=== PATIENT | male | born 1965 | race Caucasian/White ===

== ENCOUNTER 2017-06-05 18:45 | Emergency (ER) | payer OTHER ==
--- NOTE | 2017-06-05 18:58 | PDOC ---
Rapid Medical Evaluation Chief Complaint: Pain Time Seen by Provider: 06/05/17 18:53 Medical Evaluation: Allergies Allergy/AdvReac Type Severity Reaction Status Date / Time No Known Allergies Allergy Unverified 07/30/13 11:07 06/05/17 18:54 Pt presents with complaint of : rt inguinal pain, sent here for preop by Dr. Marti , wants to r/o incarceration prior to sx On brief exam: no skin discoloration I have ordered the following: needs preop Pt will go to the Emergency Dept for further workup Discharge Disposition - Diagnosis Inguinal hernia - Referrals - Patient Instructions - Post Discharge Activity
[2017-06-05 20:56] LABS: BASOPHIL 1.2 % (0-2.0); EOSINOPHIL 8.2 % (0-4.5); MCH 32.1 pg (25.7-33.7); MCHC 33.8 g/dl (32.0-35.9); MEAN PLT VOLUME 8.4 fl (7.5-11.1); NEUTROPHILS 49.8 % (42.8-82.8); PLATELET COUNT 233 K/MM3 (134-434); RDW 13.6 % (11.9-15.9); WHITE BLOOD COUNT 9.9 K/mm3 (4.0-10.0)
[2017-06-05 21:02] LABS: URINE APPEARANCE SLCLOUDY; URINE BILIRUBIN NEGATIVE (NEGATIVE); URINE BLOOD 2+ (NEGATIVE); URINE COLOR YELLOW; URINE GLUCOSE (UA) NEGATIVE (NEGATIVE); URINE KETONE NEGATIVE (NEGATIVE); URINE NITRITE NEGATIVE (NEGATIVE); URINE UROBILINOGEN NEGATIVE mg/dL (0.2-1.0)
--- NOTE | 2017-06-05 21:02 | PDOC ---
History of Present Illness <Mariaelena Groves - Last Filed: 06/06/17 00:27> - History of Present Illness Initial Comments: 06/05/17 20:59 "The patient is a 51 year old male, with a significant past medical history of diabetes, who presents to the emergency department complaining of pain to the right inguinal area for approximately 1 week. The patient reports he was driving when he began to experience pain to the right inguinal area. He reports visiting his PCP, Dr. Reeves, who diagnosed the patient with a hernia. The patient reports his pain is nonradiating and rates it an 8/10. He denies any associated nausea, vomiting, diarrhea, or constipation. He denies any scrotal pain, dysuria, hematuria, frequency, or urgency. He denies any fever, chills, dizziness, or lightheadedness. He denies any trauma or heavy lifting. He denies any recent travel or sick contacts. No past surgeries. Allergies: NKDA Past Surgical History: None reported Social History: Non smoker. No ETOH or recreational drug use PCP: Dr. Reeves " <Orlando Mcknight - Last Filed: 06/06/17 01:51> - General Chief Complaint: Pain Stated Complaint: PCP SENT Time Seen by Provider: 06/05/17 18:53 Past History <Mariaelena Groves - Last Filed: 06/06/17 00:27> - Past Medical History COPD: No Diabetes: Yes Liver Disease: (FATTY LIVER) - Surgical History Appendectomy: Yes - Suicide/Smoking/Psychosocial Hx Smoking History: Former smoker Have you smoked in the past 12 months: Yes Number of Cigarettes Smoked Daily: 3 If you are a former smoker, when did you quit?: 8 MONTHS Information on smoking cessation initiated: Yes 'Breaking Loose' booklet given: 06/05/17 Hx Alcohol Use: No Drug/Substance Use Hx: No Substance Use Type: None <Orlando Mcknight - Last Filed: 06/06/17 01:51> - Past Medical History Allergies/Adverse Reactions: Allergies Allergy/AdvReac Type Severity Reaction Status Date / Time No Known Allergies Allergy Unverified 06/05/17 18:57 Home Medications: Ambulatory Orders Metformin HCl 500 mg PO DAILY 06/05/17 Review of Systems - Review of Systems Comments:: 06/05/17 21:00 "GENERAL/CONSTITUTIONAL: No fever or chills. No weakness. HEAD, EYES, EARS, NOSE AND THROAT: No change in vision. No ear pain or discharge. No sore throat. CARDIOVASCULAR: No chest pain or shortness of breath. RESPIRATORY: No cough, wheezing, or hemoptysis. GASTROINTESTINAL: No nausea, vomiting, diarrhea or constipation. GENITOURINARY: Yes right inguinal pain.No dysuria, frequency, or change in urination. MUSCULOSKELETAL: No joint or muscle swelling or pain. No neck or back pain. SKIN: No rash NEUROLOGIC: No headache, vertigo, loss of consciousness, or change in strength/ sensation. ENDOCRINE: No increased thirst. No abnormal weight change. HEMATOLOGIC/LYMPHATIC: No anemia, easy bleeding, or history of blood clots. ALLERGIC/IMMUNOLOGIC: No hives or skin allergy." <Orlando Mcknight - Last Filed: 06/06/17 01:51> *Physical Exam - Vital Signs Last Vital Signs Temp Pulse Resp BP Pulse Ox 98.8 F 86 16 117/73 100 06/05/17 23:32 06/05/17 23:32 06/05/17 23:32 06/05/17 23:32 06/05/17 23:32 <Mariaelena Groves - Last Filed: 06/06/17 00:27> - Vital Signs Last Vital Signs Temp Pulse Resp BP Pulse Ox 107 H 18 140/97 98 06/05/17 18:54 06/05/17 18:54 06/05/17 18:54 06/05/17 18:54 - Physical Exam Comments: 06/05/17 21:01 "GENERAL: Awake, alert, and fully oriented, in no acute distress HEAD: No signs of trauma EYES: PERRLA, EOMI, sclera anicteric, conjunctiva clear ENT: Auricles normal inspection, hearing grossly normal, nares patent, oropharynx clear without exudates. Moist mucosa NECK: Nontender, no stepoffs, Normal ROM, supple, no lymphadenopathy, JVD, or masses LUNGS: Breath sounds equal, clear to auscultation bilaterally. No wheezes, and no crackles HEART: Regular rate and rhythm, normal S1 and S2, no murmurs, rubs or gallops ABDOMEN: Soft, nontender, normoactive bowel sounds. No guarding, no rebound. No masses : Mild tenderness in R groin with no appreciable mass, no scrotal tenderness or masses, no inguinal masses EXTREMITIES: Normal range of motion, no edema. No clubbing or cyanosis. No cords, erythema, or tenderness NEUROLOGICAL: Cranial nerves II through XII intact. 5/5 strength and sensation in all extremities, Normal speech, normal gait SKIN: Warm, Dry, normal turgor, no rashes or lesions noted. " <Orlando Mcknight - Last Filed: 06/06/17 01:51> ED Treatment Course - LABORATORY CBC & Chemistry Diagram: 06/05/17 20:41 06/05/17 20:41 - ADDITIONAL ORDERS Additional order review: Laboratory Results 06/05/17 06/05/17 06/05/17 20:41 20:41 20:41 PT with INR 9.90 L INR 0.88 PTT (Actin FS) 30.7 Sodium 141 Potassium 4.1 Chloride 108 H Carbon Dioxide 28 Anion Gap 5 L BUN 13 Creatinine 0.9 Creat Clearance w eGFR > 60 Random Glucose 112 H Lactic Acid 1.6 Calcium 8.3 L Total Bilirubin 0.2 AST 21 ALT 55 Alkaline Phosphatase 62 Total Protein 6.7 Albumin 3.7 Urine Color Urine Appearance Urine pH Ur Specific [place] Urine Protein Urine Glucose (UA) Urine Ketones Urine Blood Urine Nitrite Urine Bilirubin Urine Urobilinogen Urine WBC (Auto) Urine RBC (Auto) Urine Mucus Blood Type Antibody Screen 06/05/17 06/05/17 20:25 20:24 PT with INR INR PTT (Actin FS) Sodium Potassium Chloride Carbon Dioxide Anion Gap BUN Creatinine Creat Clearance w eGFR Random Glucose Lactic Acid Calcium Total Bilirubin AST ALT Alkaline Phosphatase Total Protein Albumin Urine Color Yellow Urine Appearance Slcloudy Urine pH 5.0 Ur Specific [place] 1.029 Urine Protein 1+ H Urine Glucose (UA) Negative Urine Ketones Negative Urine Blood 2+ H Urine Nitrite Negative Urine Bilirubin Negative Urine Urobilinogen Negative Urine WBC (Auto) 6 Urine RBC (Auto) 46 Urine Mucus Many Blood Type B POSITIVE Antibody Screen Negative 06/05/17 20:41 RBC 4.76 MCV 95.0 MCHC 33.8 RDW 13.6 MPV 8.4 Neutrophils % 49.8 Lymphocytes % 29.1 Monocytes % 11.7 H Eosinophils % 8.2 H Basophils % 1.2 - RADIOLOGY Radiograph Interpretation: 06/06/17 00:21 EXAM: CXR INTERPRETED BY: Dr. Lynne REVIEWED BY: Dr. Mcknight IMPRESSION: No focal opacity to suggest pneumonia. Please correlate clinically. EXAM: CT Abdomen and Pelvis INTERPRETED BY: Dr. Lynne REVIEWED BY: Dr. Mcknight IMPRESSION: The appendix is not visualized, however, no secondary signs of acute appendicitis in the right lower quadrant. No evidence of intestinal obstruction or acute diverticulitis. No definite bowel wall thickening. Hepatic steatosis. <Mariaelena Groves - Last Filed: 06/06/17 00:27> - LABORATORY CBC & Chemistry Diagram: 06/05/17 20:41 06/05/17 20:41 - RADIOLOGY Radiology Studies Ordered: Category Date Time Status ABDOMEN & PELVIS CT WITH CONTR [CT] Stat CT Scan 06/05/17 19:43 Ordered CHEST X-RAY PORTABLE* [RAD] Stat Radiology 06/05/17 19:42 Completed <Orlando Mcknight - Last Filed: 06/06/17 01:51> Medical Decision Making - Medical Decision Making 06/06/17 00:27 First call placed to Dr. Marti at 00:28. Awaiting call back. <Mariaelena Groves - Last Filed: 06/06/17 00:27> - Medical Decision Making 06/05/17 21:01 51 M with R groin pain x 1 week. Possible hernia. Pt with unremarkable abdominal exam and scrotal exam. No s/s of intestinal obstruction at this time. - Labs - CT abd/pelvis - Dr. Marti aware of patient 06/06/17 01:46 CT without evidence of hernia. UA notable for +RBCs, suggesting possible kidney stone. No stone visualized on CT. Pt may have recently passed the stone given pain localized near his groin. Spoke with Dr. Marti, who agrees with plan to DC and f/u in clinic. Pt reassessed - pain is minimal at this time. Pt tolerating PO. Well appearing with normal vitals. Clinically stable for DC. <Orlando Mcknight - Last Filed: 06/06/17 01:51> *DC/Admit/Observation/Transfer - Attestations Scribe Attestion: 06/06/17 00:22 Documentation prepared by Mariaelena Groves, acting as senior medical billing specialist for Orlando Mcknight MD. <Mariaelena Groves - Last Filed: 06/06/17 00:27> - Attestations Physician Attestion: 06/06/17 01:51 I, Dr. Orlando Mcknight MD, attest that this document has been prepared under my direction and personally reviewed by me in its entirety. I further attest, that it accurately reflects all work, treatment, procedures and medical decision -making performed by me. <Orlando Mcknight - Last Filed: 06/06/17 01:51> Diagnosis at time of Disposition: Groin pain - Discharge Dispostion Disposition: HOME - Referrals Referrals: Douglas Reeves MD [Primary Care Provider] - Denis Marti MD [Staff Physician] - Ambrose Baptiste MD [Staff Physician] - - Patient Instructions Printed Discharge Instructions: DI for Groin Strain Additional Instructions: You had some blood in your urine today, which may suggest that your pain is related to a kidney stone. You must follow up with a urologist to have this further evaluated, as blood in urine can sometimes be a sign of bladder cancer. Call the number provided to make an appointment with urology clinic within 1 week. Follow up with Dr. Marti this week in clinic. Call the number provided to make an appointment. Take ibuprofen as needed for pain. If you experience worsening pain, nausea, vomiting, or any other concerning symptoms, return to the ER immediately. - Post Discharge Activity Forms/Work/School Notes: Back to Work
[2017-06-05 21:06] LABS: URINE PROTEIN 1+ (NEGATIVE)
[2017-06-05 21:07] LABS: URINE MUCUS MANY; URINE RBC 46 /hpf (0-3); URINE WBC 6 /hpf (3-5)
[2017-06-05 21:10] LABS: INR 0.88 (0.82-1.09); PROTHROMBIN TIME (PATIENT) 9.9 SEC (9.98-11.88)
[2017-06-05 21:13] LABS: ACTIVATED PTT 30.7 SECONDS (26.9-34.4)
[2017-06-05 21:21] LABS: ALBUMIN 3.7 g/dl (3.4-5.0); ALK PHOS 62 U/L (45-117); ANION GAP 5 (8-16); BILIRUBIN,TOTAL 0.2 mg/dL (0.2-1.0); CALCIUM 8.3 mg/dL (8.5-10.1); CO2 28 mmol/L (21-32); CREATININE 0.9 mg/dL (0.7-1.3); GLUCOSE,RANDOM 112 mg/dL (74-106); SGPT/ALT 55 U/L (12-78); TOT PROT 6.7 g/dl (6.4-8.2)
[2017-06-05 21:28] LABS: SGOT/AST 21 U/L (15-37)
[2017-06-05 23:33] VITALS: BP 117/73; PULSE 86; TEMP 98.8
--- NOTE | 2017-06-06 10:05 | EKG ---
Test Reason : Blood Pressure : / mmHG Vent. Rate : 099 BPM Atrial Rate : 099 BPM P-R Int : 148 ms QRS Dur : 084 ms QT Int : 342 ms P-R-T Axes : 035 -18 040 degrees QTc Int : 438 ms NORMAL SINUS RHYTHM NORMAL ECG NO PREVIOUS ECGS AVAILABLE Confirmed by GARRETT MENDENHALL MD ([id number]) on 06/06/2017 10:05:37 AM Referred By: Confirmed By:GARRETT MENDENHALL MD
[2017-06-06 12:22] LABS: URINE LEUK ESTERASE Negative (NEGATIVE)
== END 2017-06-06 02:07 | disposition home or self-care (01) ==
LOC: JER 18:45
DX: R10.31 Right lower quadrant pain (principal); E11.9 Type 2 diabetes mellitus without complications; Z79.84 Long term (current) use of oral hypoglycemic drugs
CPT/HCPCS: 36415; 71010-TC; 74177-TC; 80053; 81003; 81015; 83605; 85025; 85610; 85730; 86850; 86900; 86901; 93005; 93010; 99283-25; Q9967

== ENCOUNTER 2022-05-04 11:08 | Emergency (ER) | payer BC, OTHER ==
[2022-05-04 11:37] VITALS: BP 152/95; PULSE 100; RESP 18; TEMP 98.1; BMI 29.7
[2022-05-04] MEDS ORDERED: ACETAMINOPHEN 1000 MG/100 ML BAG IVPB ONE (12:38)
[2022-05-04] MEDS ORDERED: SODIUM CHLORIDE 0.9% 500 ML INFUS.BAG IV ONE (12:38)
[2022-05-04] MEDS ORDERED: ACETAMINOPHEN INJECTION 100 ML IVPB ONE (13:16)
[2022-05-04 14:03] LABS: SODIUM 138 mmol/L (136-145)
[2022-05-04 14:05] LABS: ALBUMIN 3.8 g/dl (3.4-5.0); BLOOD UREA NITROGEN 15.2 mg/dL (7-18); CALCIUM 9.4 mg/dL (8.5-10.1); CO2 29 mmol/L (21-32); GLUCOSE,RANDOM 87 mg/dL (74-106)
[2022-05-04 14:09] LABS: CREATININE 0.9 mg/dL (0.55-1.3); SGOT/AST 90 U/L (15-37)
[2022-05-04 14:10] LABS: ALK PHOS 66 U/L (45-117); BILIRUBIN,TOTAL 0.6 mg/dL (0.2-1); TOT PROT 8.2 g/dl (6.4-8.2)
[2022-05-04 14:23] LABS: ANION GAP 6 MMOL/L (8-16); CHLORIDE 104 mmol/L (98-107); SGPT/ALT 53 U/L (13-61)
[2022-05-04 14:28] LABS: BASO % 0.8 % (0-2.0); EOS % 7.1 % (0-4.5); HEMATOCRIT 46.2 % (35.4-49); HEMOGLOBIN 16.2 GM/dL (11.7-16.9); LYMPH % 18.1 % (8-40); MCH 32.9 pg (25.7-33.7); MEAN CELL VOLUME 93.9 fl (80-96); MEAN PLT VOLUME 9.3 fl (7.5-11.1); MONO % 8.6 % (3.8-10.2); NEUT % 65.4 % (42.8-82.8); PLATELET COUNT 448 10^3/uL (134-434); RBC 4.92 M/mm3 (4.00-5.60); RDW 13.8 % (11.9-15.9); WHITE BLOOD COUNT 10.9 K/mm3 (4.0-10.0)
[2022-05-04] MEDS ORDERED: KETOROLAC TROMETHAMINE 30 MG/1 ML VIAL IVPUSH ONE (15:27)
[2022-05-04] MEDS ORDERED: KETOROLAC TROMETHAMINE 30 MG/1 ML VIAL ONE (15:40)
== END 2022-05-04 16:09 | disposition home or self-care (01) ==
LOC: JER 11:08
PROC: 3E0333Z Introduction of Anti-inflammatory into Peripheral Vein, Percutaneous Approach (ICD-10-PCS; principal; 2022-05-04)
PROC: 3E0333Z Introduction of Anti-inflammatory into Peripheral Vein, Percutaneous Approach (ICD-10-PCS; 2022-05-04)
DX: J02.9 Acute pharyngitis, unspecified (principal)
CPT/HCPCS: 36415; 70491-TC; 80053; 84132; 85025; 87651; 99285-25; Q9967

== ENCOUNTER 2022-08-12 09:42 | Emergency (ER) | payer BC ==
[2022-08-12 10:07] VITALS: BMI 27.8
[2022-08-12] MEDS ORDERED: IBUPROFEN 600 MG TABLET (FP) PO ONE ×2 (11:24→11:33)
[2022-08-12 12:29] VITALS: BP 128/62; PULSE 80; RESP 18; TEMP 97.8
== END 2022-08-12 12:29 | disposition home or self-care (01) ==
LOC: JERFT 09:42
DX: M54.50 Low back pain, unspecified (principal)
CPT/HCPCS: 99283-25

== ENCOUNTER 2023-12-28 10:10 | Emergency (ER) | payer BC ==
[2023-12-28 10:15] VITALS: BP 129/84; PULSE 109; RESP 18; TEMP 98.4; BMI 29.2
[2023-12-28] MEDS ORDERED: FLUORESCEIN NA 1 EA STRIP ONE ×2 (10:47→10:48)
[2023-12-28] MEDS ORDERED: TETRACAINE 0.5% OPHTH SOLN 2 ML BOTTLE ONE (10:47)
[2023-12-28] MEDS: FLUORESCEIN NA 1 EA STRIP OU ONE (10:48)
[2023-12-28] MEDS: TETRACAINE 0.5% HCL 0.6ML DROPPER.BOTTLE OU ONE (10:48)
[2023-12-28] MEDS: NAPHAZOLINE/PHENIRAMINE OPHTHALMIC 15 ML BOTTLE OD ONE (11:21)
== END 2023-12-28 11:46 | disposition home or self-care (01) ==
LOC: JER 10:10 → JERFT 10:10
DX: H11.421 Conjunctival edema, right eye (principal); H57.11 Ocular pain, right eye
CPT/HCPCS: 99283-25

== ENCOUNTER 2023-12-31 23:22 | Emergency (ER) | payer BC ==
[2023-12-31 23:30] VITALS: BP 159/94; PULSE 97; RESP 18; TEMP 98.3; BMI 29.2
[2023-12-31] MEDS ORDERED: KETOROLAC TROMETHAMINE 30 MG/1 ML VIAL ONE (23:58)
[2024-01-01] MEDS: KETOROLAC TROMETHAMINE 30 MG/1 ML VIAL IM ONE (00:20)
== END 2024-01-01 00:36 | disposition home or self-care (01) ==
LOC: JER 23:22
PROC: 3E0233Z Introduction of Anti-inflammatory into Muscle, Percutaneous Approach (ICD-10-PCS; principal; 2023-12-31)
DX: M25.511 Pain in right shoulder (principal); M75.31 Calcific tendinitis of right shoulder
CPT/HCPCS: 73030-TC-RT-FY; 93005; 93010; 99284-25